=== PATIENT | male | born 1970 | race Caucasian/White ===

== ENCOUNTER → 2016-08-01 | Outpatient (CLI) | payer BC ==
[~2016-08-01] MED LIST: AGM875 PO; CEPH500C PO; OMEG10007 PO; OXYC-57 PO; SYMIN/8045 INH
--- NOTE | 2016-08-01 09:16 | DIAGNOSTIC IMAGING REPORT ---
ULTRASOUND RIGHT UPPER QUADRANT ABDOMEN CLINICAL HISTORY: Right upper quadrant abdominal pain. COMPARISON STUDY: No priors. TECHNIQUE: Real-time, grayscale, and color flow sonography of the right upper quadrant of the abdomen was performed. Images are reviewed in the transverse and longitudinal planes. FINDINGS: Liver: The liver is normal in size and echotexture. There is no intrahepatic biliary ductal dilatation. The main portal vein is patent. Gallbladder: Minimal sludge is noted. No shadowing gallstones are identified. There is no gallbladder wall thickening or pericholecystic fluid. A sonographic Cochran's sign is reportedly absent. The common bile duct measures up to 0.7 cm in diameter. Pancreas: Not well visualized due to overlying bowel gas. Right kidney: Survey images of the right kidney demonstrate normal size and echotexture. There is no hydronephrosis. Ascites: None. Right upper quadrant: No sonographic amount is identified at the point of interest specified by the patient. IMPRESSION: 1. No acute sonographic abnormality is identified. 2. There is minimal biliary sludge. No shadowing gallstones are seen. 3. The pancreas was not well visualized due to overlying bowel gas. Electronically signed by: Rashaad Natarajan M.D. 08/01/2016 9:14 AM Dictated Date/Time: 08/01/2016 9:04 AM
== END | disposition home or self-care (01) ==
LOC: C.ULTRBC 08:40
PROVIDERS: ATTEND Family Medicine
DX: R10.9 Unspecified abdominal pain (principal)

== ENCOUNTER 2017-02-05 08:42 | Day surgery (SDC) | payer BC ==
[2017-01-30 11:07] VITALS: BMI 26.0
[~2017-02-05] VITALS: Ht 167.6 cm; Wt 74.0 kg
[~2017-02-05 08:42] MED LIST changes: -AGM875 PO; +CEFAZOLIN 2000 MG/60 ML D5W IV SCH; -CEPH500C PO; +LACTATED RINGER'S 1000ML 1,000 ML IV SCH; -OXYC-57 PO
[2017-02-05] MEDS ORDERED: LIDOCAINE HCL 2% 2 ML VIAL (20MG/ML) ONE (09:01)
[2017-02-05] MEDS ORDERED: PROPOFOL IV EMULSION 10 MG/ML 20 ML VIAL IV ONE (09:01)
[2017-02-05] MEDS ORDERED: FENTANYL CITRATE INJ 50 MCG/1 ML 2 ML VIAL ONE ×2 (09:01→10:54)
[2017-02-05] MEDS ORDERED: MIDAZOLAM HCL 1 MG/ML 2ML VIAL ONE (09:01)
[2017-02-05] MEDS ORDERED: ROCURONIUM BROMIDE 10 MG/ML 5 ML VIAL IV ONE (09:01)
[2017-02-05 09:05] VITALS: BP 149/88; PULSE 60; TEMP 36.6; O2SAT 99; Ht 167.6 cm; Wt 74.0 kg
--- NOTE | 2017-02-05 10:17 | History & Physical Bridge Note ---
H&P Re-Evaluation Bridge Note: I have examined the patient, reviewed the History & Physical and in the interval since the performance of the History & Physical I have noted the following changes of clinical significance: No changes noted
[2017-02-05] MEDS ORDERED: BUPIVACAINE/EPINEPHRINE 0.5% MPF 1:200,000 30 ML VIAL ONE (10:33)
--- NOTE | 2017-02-05 10:34 | Discharge Instructions ---
Discharge Instructions Date of Service Feb 05, 2017. Admission Reason for Admission: Gallbladder Sludge Discharge Discharge Diagnosis / Problem: Gallbladder Sludge Discharge Goals Goal(s): Decrease discomfort, Improve function Activity Recommendations Activity Limitations: as noted below Lifting Limitations: no more than 10 pounds Exercise/Sports Limitations: until after follow-up appointment May Resume Sexual Activity: after follow-up appointment Shower/Bathe: tomorrow Driving or Machine Use: resume 1 day after discharge . Instructions / Follow-Up Instructions / Follow-Up Please follow-up with Dr. Mcfarlane in the office in 1-2 weeks. Please call the office at [phone] to make an appointment if you do not have one already. Please call the office with any questions or concerns. Current Hospital Diet Patient's current hospital diet: Discharge Diet Recommended Diet: Regular Diet Pending Studies Studies pending at discharge: no Medical Emergencies . Who to Call and When: Medical Emergencies: If at any time you feel your situation is an emergency, please call 911 immediately. . Non-Emergent Contact Non-Emergency issues call your: Primary Care Provider, Surgeon Call Non-Emergent contact if: temperature is above 101.5, your pain is not controlled, wound has increased drainage, wound has increased redness . "Provider Documentation" section prepared by Melissa Bishop. . VTE Core Measure Inpt VTE Proph given/why not?: SCD's [place] Drug Monitoring Program Search Results: patient reviewed within database, no issues identified
[2017-02-05] MEDS ORDERED: ONDANSETRON INJ 2 MG/ML 2 ML VIAL ONE (11:09)
[2017-02-05] MEDS ORDERED: GLYCOPYRROLATE INJ 0.2 MG/ML VIAL ONE (11:09)
[2017-02-05] MEDS ORDERED: NEOSTIGMINE METHYLSULFATE 5 MG/5 ML SYR ONE (11:09)
[2017-02-05] MEDS ORDERED: KETOROLAC TROMETHAMINE 30 MG/ML VIAL ONE (11:09)
[2017-02-05] MEDS ORDERED: DEXAMETHASONE SOD INJ 4 MG/ML VIAL ONE (11:09)
[2017-02-05] MEDS ORDERED: ALBUTEROL HFA INHALER 8.5 GM INH ONE (11:15)
[2017-02-05] MEDS ORDERED: SODIUM CHLORIDE 0.9% 1000ML 1,000 ML IV SCH (11:27)
[2017-02-05] MEDS ORDERED: ONDANSETRON INJ 2 MG/ML 2 ML VIAL IV PRN (11:30)
[2017-02-05] MEDS ORDERED: HYDROCODONE/ACETAMOPHEN 5/325MG TAB PO PRN ×2 (11:30)
--- NOTE | 2017-02-05 11:30 | [facility] Operative Report ---
Operative Report Operative Date Feb 05, 2017. Pre-Operative Diagnosis Sludge in gallbladder Post-Operative Diagnosis Sludge in gallbladder Procedure(s) Performed Laparoscopic Cholecystectomy Surgeon Dr. Mcfarlane Computer Equipment Installer Surgeon(s) Melissa Smallwood PA-C Estimated Blood Loss 5 ML Findings normal appearing anatomy Specimens A: Gallbladder Anesthesia get Complication(s) None Disposition Recovery Room / PACU Description of Procedure After informed consent was obtained the patient was taken to the operating suite placed in supine position. After successful intubation the abdomen was shaved and sterilely prepped and draped in usual fashion. A Supraumbilical incision was made with an 11 blade scalpel and carried down through the soft tissue using electrocautery. Anterior rectus fascia was opened using electrocautery and 2 #0 Vicryl stay sutures were placed. Peritoneum was entered using blunt finger penetratio and a finger sweep was performed. A 12 mm Guerrier trocar was placed and the abdomen was insufflated to 18 mmHg. The laparoscope was inserted and the abdomen was examined in 360. Anatomy was normal. We did elevate the left lobe liver which showed normal anatomy as well. A subxiphoid 5 mm port and 2 right upper quadrant 5 mm ports were placed under direct vision. The patient was placed in reversed Trendelenburg position slightly airplane to the left. The gallbladder was grasped and elevated superiorly and laterally. [place] dissector was used to take down adhesions around the neck of the gallbladder. The Common bile duct was readily visualized and its junction with the cystic duct identified. The cystic duct was skeletonized with [place] dissector and clipped twice proximally once distally and transected with laparoscopic scissor. In Similar fashion the cystic artery was identified and skeletonized clipped and divided. The gallbladder was removed from the gallbladder fossa using electrocautery. It was removed intact and placed into an Endo Catch bag. Several small bleeding points on the gallbladder fossa were controlled using electrocautery. The gallbladder fossa was thoroughly irrigated and suctioned dry. There was adequate hemostasis and no evidence of a bile leak. A Final look around the abdomen showed no other abnormalities. The gallbladder was placed into an Endo Catch bag and removed from the camera port site. All the trochars were were removed and the abdomen was desufflated. The fascia of the camera port was closed using 0 Vicryl [id number] fashion. All the wounds were irrigated and closed using 4-0 Monocryl. Marcaine was injected around the incisions for postoperative analgesia and skin glue used as a dressing. The patient was awaken extubated and transferred recovery in stable condition I attest to the content of the Intraoperative Record and any orders documented therein. Any exceptions are noted below.
--- NOTE | 2017-02-05 12:15 | Anesthesiology Progress Note ---
Anesthesia Post Op Note Date & Time Feb 05, 2017 at 12:15 Vital Signs Pain Intensity: 0 Vital Signs Past 12 Hours Date Time Temp Pulse Resp B/P (MAP) Pulse Ox O2 Delivery O2 Flow Rate FiO2 02/05/17 12:09 52 22 97 02/05/17 12:09 52 22 02/05/17 12:08 36.6 45 17 128/82 (93) 95 Room Air 02/05/17 12:06 123/79 02/05/17 12:04 47 14 02/05/17 12:04 46 14 95 02/05/17 12:01 128/84 02/05/17 11:59 47 16 02/05/17 11:59 47 16 96 02/05/17 11:56 138/85 02/05/17 11:54 48 17 99 02/05/17 11:54 49 17 02/05/17 11:51 139/81 02/05/17 11:49 50 17 02/05/17 11:49 50 17 99 02/05/17 11:48 51 16 100 02/05/17 11:48 51 16 02/05/17 11:46 142/82 02/05/17 11:43 54 15 99 02/05/17 11:43 53 15 02/05/17 11:41 135/85 02/05/17 11:38 36.4 60 16 143/87 100 Mask 10 02/05/17 11:38 60 16 143/87 100 02/05/17 11:38 60 16 02/05/17 09:05 36.6 60 16 149/88 (108) 99 Room Air Notes Mental Status: alert / awake / arousable, participated in evaluation Pt Amnestic to Procedure: Yes Nausea / Vomiting: adequately controlled Pain: adequately controlled Airway Patency, RR, SpO2: stable & adequate BP & HR: stable & adequate Hydration State: stable & adequate Anesthetic Complications: no major complications apparent
[2017-02-05 13:23] VITALS: TEMP 36.7
[2017-02-05 13:55] VITALS: BP 128/79; PULSE 47; O2SAT 96
== END 2017-02-05 14:11 | disposition home or self-care (01) ==
LOC: C.ACU 08:42
PROVIDERS: ATTEND Surgery
DX: K87 Disorders of gallbladder, biliary tract and pancreas in diseases classified elsewhere (principal); J45.909 Unspecified asthma, uncomplicated; Z82.3 Family history of stroke; Z83.3 Family history of diabetes mellitus